=== PATIENT | male | born 1975 | race Caucasian/White ===

== ENCOUNTER → 2021-04-17 11:46 | Outpatient (CLI) | payer OTHER, SELFPAY ==
--- NOTE | 2021-04-17 12:04 | MR_ITS ---
PROCEDURE INFORMATION: Exam: MR Left Lower Extremity Joint Without and With Contrast; Ankle Exam date and time: 04/17/2021 12:04 PM Age: 45 years old Clinical indication: Left; Surgery date: 6+ months; Surgery type: Achilles repair; Patient HX: Lt ankle pain and swelling around achilles area. Prior surgery in 2007. 20ml prohance injected TECHNIQUE: Imaging protocol: MR of the Left lower extremity without and with contrast. Exam focused on the ankle. Contrast material: PROHANCE; Contrast volume: 20 ml; Contrast route: IV; COMPARISON: No relevant prior studies available. FINDINGS: Bones and cartilage: A benign bone island is incidentally noted. Well-corticated osteochondral bodies adjacent to the tip of the medial malleolus are consistent with remote unhealed fracture fragments. Joint spaces: No significant joint effusion. LIGAMENTS: Distal tibiofibular syndesmosis: Unremarkable. No tear. Anterior talofibular ligament: Unremarkable. No tear. Posterior talofibular ligament: Unremarkable. No tear. Calcaneofibular ligament: Unremarkable. No tear. Deltoid ligament complex: Unremarkable. No tear. TENDONS: Flexor tendons of foot: Unremarkable as visualized. Tibialis posterior tendon: Mild tenosynovitis involves the tibialis posterior tendon. Peroneal tendons: Unremarkable as visualized. Extensor tendons of foot: Unremarkable as visualized. Tibialis anterior tendon: Unremarkable. Achilles tendon: The repaired Achilles tendon is markedly thickened and has approximately 20% tearing involving the dorsal surface located approximately 5.7 cm proximal to the insertion (series 6/images 12-15). There is no prior postoperative study to assess for interval change. Tarsal canal (Sinus tarsi): Unremarkable. Normal signal of the fat. Tarsal tunnel: Unremarkable. Muscles: Unremarkable. Soft tissues: There is a prominent amount of edema in the subcutaneous fat. Plantar fascia: Unremarkable. IMPRESSION: 1. Repaired Achilles tendon with a 20% presumed retear located 5.6 cm proximal to the insertion. 2. Mild tenosynovitis of the tibialis posterior tendon. 3. Prominent subcutaneous edema.
[2021-04-17 12:39] LABS: Chloride 102 mmol/L (98-107); Potassium 4.3 mmoL/L (3.5-5.1); Sodium 139 mmol/L (136-145)
[2021-04-17 12:42] LABS: Alanine Aminotransferase 20 U/L (12-78); Albumin Level 4.6 g/dl (3.5-5.0); Albumin/Globulin Ratio 1.6 (1.1-1.8); Alkaline Phosphatase 60 U/L (38-126); Anion Gap 10.3 mEq/L (5-15); Aspartate Amino Transferase 26 U/L (17-59); Bilirubin,Total 0.6 mg/dl (0.2-1.3); Blood Urea Nitrogen 17 mg/dl (9-20); Carbon Dioxide 31 mmol/L (22.0-30.0); Estimated Glomerular Filt Rate 81 ml/min (>60); GFR (African American) 98 ML/MIN (>60); Globulin 2.9 g/dL (1.3-3.2); Total Protein,Serum 7.5 g/dl (6.3-8.2)
[2021-04-17 12:43] LABS: Calcium 9.5 mg/dl (8.4-10.2); Glucose 96 mg/dl (74-100)
[2021-04-17 12:48] LABS: C-Reactive Protein 1.4 mg/L (0-4)
[2021-04-17 13:21] LABS: Basophils # 0.1 K/mm3 (0-0.2); Basophils % 1.1 % (0.1-2.0); Eosinophils # 0.2 K/mm3 (0.0-0.4); Eosinophils % 4.7 % (0.1-12.0); Hematocrit 38.8 % (42.0-52.0); Hemoglobin 13.1 g/dL (14.1-18.0); Lymphocytes # 1.2 K/mm3 (0.7-4.5); Lymphocytes % 27.4 % (10-50); Mean Corpuscular HGB Conc 33.8 g/dL (31.8-35.4); Mean Corpuscular Hemoglobin 29.8 pg (27.0-31.2); Mean Corpuscular Volume 88.1 fl (80-94); Mean Platelet Volume 7.9 fl (7.4-10.4); Monocytes # 0.3 K/mm3 (0.1-1.0); Monocytes % 6.6 % (1.7-9.3); Neutrophils # 2.6 K/mm3 (1.8-7.8); Neutrophils % 60.2 % (37.0-80.0); Platelet Count 237 K/mm3 (142-424); Red Cell Distribution Width 12.7 % (11.5-17.5); White Blood Count 4.3 K/mm3 (4.8-10.8)
[2021-04-17 13:32] LABS: Erythrocyte Sedimentation Rate 23 mm/hr (0-15)
== END ==
PROVIDERS: Visit Provider Podiatrist
DX: M76.62 Achilles tendinitis, left leg (principal)
CPT/HCPCS: 73723; 80053; 85025; 85651; 86140; A9576

== ENCOUNTER → 2022-10-30 08:44 | Outpatient (CLI) | payer OTHER, SELFPAY ==
--- NOTE | 2022-10-30 08:48 | XR_ITS ---
FINAL REPORT CLINICAL HISTORY: lt hip pain FINDINGS: LEFT HIP Two views of the left hip with an AP pelvis demonstrate no acute fracture or dislocation. There is moderate left hip joint space narrowing. There are mild osteophytes at the acetabulum margin. There is partial lumbarization of the S1 segment. The visualized bony structures are well aligned. No soft tissue abnormality is seen. IMPRESSION: Moderate left hip joint space narrowing with mild osteophyte formation at the acetabular margin. No acute bony abnormality. Reviewed, Interpreted and Dictated by Sebastián Chapa MD Transcribed by Gabriela Barney Authenticated and [facility]
== END ==
PROVIDERS: PCP Family Medicine; Visit Provider Orthopaedic Surgery
DX: M25.552 Pain in left hip (principal)
CPT/HCPCS: 73502

== ENCOUNTER 2022-12-05 09:53 | Day surgery (SDC) | payer OTHER, SELFPAY ==
[2022-11-11 14:53] VITALS: BMI 25.4
[2022-12-05 10:24] VITALS: BP 135/73; PULSE 73; RESP 18; TEMP 36.5; O2SAT 99
--- NOTE | 2022-12-05 11:27 | EXP.ANES.CKL ---
[facility] Disclaimer: The information contained in this section may have been updated after the patient was seen, as this information can be updated by other users. Medical History Achilles rupture left Hemorrhoids Slight spotting only sometimes. Uses miralax to achieve Frio #4 and ease of movement. No issues currently. Rectal bleeding resolved/due to hemorrhoid. Tear of distal tendon of biceps right Surgical History History of wisdom tooth extraction, class IV edentulism Family History Mother Non-Hodgkin lymphoma Father Alzheimers disease Social History Smoking Status: Never smoker alcohol intake: current substance use type: denies use current occupational status: employed Travel in the last 8 weeks: None household members: family housing: house marital status: education level: master's degree current occupational exposures/hazards: Yes caffeine: Yes special roger needs: No agree to transfusion: No do you feel safe at home: Yes victim of physical abuse: No victim of emotional abuse: No victim of sexual abuse: No would you like helpful sources: No [facility] Anesthesia Checklist Patient Identification Patient Identification: Arm Band and Verbal (Name & ) Structural Data Admitted From: Home Planned Operative Procedure/s: Colonoscopy Consent for Planned Operative Procedure(s) Verified: Yes Verified Documents: Surgical Consent NPO Status Verified Time NPO: 05:00 Airway Assessment C-Spine Mobility Assessed: Yes TMJ Mobility Assessed: Yes Dentition: Good Dentition Neurological Assessment Level of Consciousness: Awake, Alert and Appropriate Anesthesia Plan Anesthesia Risk discussed: Yes ASA Class: I Anesthesia Type: MAC
[2022-12-05 11:31] VITALS: O2SAT 99
--- NOTE | 2022-12-05 11:50 | HMH.SCOPE ---
Procedure: Date: 12/05/22 Patient Date of :: 1975 Procedure Performed:: Screening colonoscopy Indications:: Screening for colorectal cancer Performing Provider:: Zahida Engel MD Referring Provider:: Rock Roth Sedation:: Propofol Procedure:: After placing the patient in the left lateral decubitus position, the colonoscopy was gently inserted into the rectum and under direct visualization advanced to the cecum which was identified by transillumination in the right lower quadrant, identification of the ileocecal valve, appendiceal orifice, and cecal strap. Color, texture, mucosa, and anatomy of the colon were carefully examined with the scope. Findings:: Anal canal: normal Rectum: normal Sigmoid colon: normal without polyps or inflammatory changes Descending colon: normal without polyps or inflammatory changes Splenic flexure: normal Transverse colon: normal without polyps or inflammatory changes Hepatic flexure: normal Ascending colon: normal without polyps or inflammatory changes Cecum: normal Terminal ileum: not visualized Impression: Normal colonoscopy Recommendations:: Follow up examination in about TEN years or so, sooner if clinically indicated. Complications:: None Estimated blood obtained (mL): 0
[2022-12-05 11:53] VITALS: BP 113/68; PULSE 71; RESP 16; TEMP 36.2; O2SAT 96
[2022-12-05 12:03] VITALS: BP 110/63; PULSE 63; RESP 16; O2SAT 97
[2022-12-05 12:13] VITALS: BP 117/66; PULSE 60; RESP 16; O2SAT 97
[2022-12-05 12:23] VITALS: BP 128/77; PULSE 60; RESP 16; TEMP 36.6; O2SAT 99
== END 2022-12-05 12:25 | disposition home or self-care (01) ==
PROVIDERS: PCP Family Medicine; Visit Provider Internal Medicine Gastroenterology
PROC: 0DJD8ZZ Inspection of Lower Intestinal Tract, Via Natural or Artificial Opening Endoscopic (ICD-10-PCS; CPT 45378; principal; 2022-12-05 11:00)
DX: Z12.11 Encounter for screening for malignant neoplasm of colon (principal)
CPT/HCPCS: 45378

== ENCOUNTER → 2023-01-08 08:38 | Outpatient (CLI) | payer OTHER, SELFPAY ==
[2023-01-08 09:21] LABS: Basophils # 0.1 K/mm3 (0-0.2); Basophils % 1.6 % (0.1-2.0); Eosinophils # 0.3 K/mm3 (0.0-0.4); Eosinophils % 5.7 % (0.1-12.0); Hematocrit 41.7 % (42.0-52.0); Hemoglobin 14.2 g/dL (14.1-18.0); Lymphocytes # 1.3 K/mm3 (0.7-4.5); Lymphocytes % 29.6 % (10-50); Mean Corpuscular HGB Conc 33.9 g/dL (31.8-35.4); Mean Corpuscular Hemoglobin 30.2 pg (27.0-31.2); Mean Platelet Volume 8.1 fl (7.4-10.4); Monocytes # 0.3 K/mm3 (0.1-1.0); Monocytes % 7.4 % (1.7-9.3); Neutrophils # 2.4 K/mm3 (1.8-7.8); Neutrophils % 55.6 % (37.0-80.0); Platelet Count 223 K/mm3 (142-424); Red Blood Count 4.69 M/mm3 (4.60-6.20); Red Cell Distribution Width 13.5 % (11.5-17.5); White Blood Count 4.3 K/mm3 (4.8-10.8)
[2023-01-08 10:10] LABS: Alanine Aminotransferase 27 U/L (12-78); Albumin Level 4.7 g/dl (3.5-5.0); Albumin/Globulin Ratio 1.7 (1.1-1.8); Alkaline Phosphatase 52 U/L (38-126); Anion Gap 10.5 mEq/L (5-15); Aspartate Amino Transferase 28 U/L (17-59); Bilirubin,Total 0.7 mg/dl (0.2-1.3); Blood Urea Nitrogen 21 mg/dl (9-20); Calcium 9.4 mg/dl (8.4-10.2); Carbon Dioxide 30 mmol/L (22.0-30.0); Chloride 102 mmol/L (98-107); Chol/HDL Ratio 5.3 (1-3.5); Cholesterol 250 mg/dl (140-200); Estimated Glomerular Filt Rate 80 ml/min (>60); GFR (African American) 97 ML/MIN (>60); Globulin 2.7 g/dL (1.3-3.2); Glucose 108 mg/dl (74-100); HDL Cholesterol 47 mg/dl (40-60); Potassium 4.5 mmoL/L (3.5-5.1); Sodium 138 mmol/L (136-145); Total Protein,Serum 7.4 g/dl (6.3-8.2); Triglycerides 224 mg/dl (30-150); VLDL Cholesterol 45 mg/dL (0-40)
[2023-01-08 10:21] LABS: Direct LDL Cholesterol 140.83 mg/dL (100-129)
== END ==
PROVIDERS: PCP Family Medicine; Visit Provider Family Medicine
DX: Z00.00 Encounter for general adult medical examination without abnormal findings (principal)
CPT/HCPCS: 36415; 80053; 80061; 85025

== ENCOUNTER → 2023-03-17 14:25 | Outpatient (CLI) | payer OTHER, SELFPAY ==
--- NOTE | 2023-03-17 14:25 | MR_ITS ---
FINAL REPORT CLINICAL HISTORY: Lt Hip pain. ABNORMAL X-RAY. NO INJURY OR TRAUMA FINDINGS: Multiplanar MR imaging of the left hip was performed without contrast. There are mild degenerative changes of the right hip. Severe degenerative changes are seen of the left hip. There are subchondral cysts in the superior left femoral head and a presumed subchondral cyst in the anterior femoral head measuring 16 mm. There is bone marrow edema in the left femoral head and neck. There is no evidence of fracture or dislocation. There is no evidence of avascular necrosis. No bony mass is identified. There is a tear of the anterior superior labrum with a lobular, parameniscal cyst in the region measuring 12 mm. Small bilateral joint effusions are seen. The tendons are intact. The musculature is intact. IMPRESSION: Severe degenerative changes of the left hip with subchondral cysts in the femoral head and associated bone marrow edema of the left femoral head and neck. Tear of the anterior superior labrum with parameniscal cyst. Reviewed, Interpreted and Dictated by Mansoor Thompson III, MD Transcribed by Deena Mercer Authenticated and [facility]
== END ==
PROVIDERS: PCP Family Medicine; Visit Provider Orthopaedic Surgery
DX: M25.552 Pain in left hip (principal); M25.852 Other specified joint disorders, left hip
CPT/HCPCS: 73721

== ENCOUNTER 2023-05-12 09:09 | Day surgery (SDC) | payer OTHER, SELFPAY ==
[2023-05-06 15:45] VITALS: BMI 25.9
[2023-05-12 09:28] VITALS: BP 139/81; PULSE 70; RESP 18; TEMP 36.4; O2SAT 99
--- NOTE | 2023-05-12 09:37 | P.PNANES_ITS ---
[facility] Disclaimer: The information contained in this section may have been updated after the patient was seen, as this information can be updated by other users. Medical History Achilles rupture Hemorrhoids Rectal bleeding Tear of distal tendon of biceps Surgical History History of wisdom tooth extraction, class IV edentulism Family History Mother Non-Hodgkin lymphoma Father Alzheimers disease Social History Smoking Status: Never smoker alcohol intake: current substance use type: denies use current occupational status: employed Travel in the last 8 weeks: Inside the [place] household members: family housing: house marital status: education level: master's degree current occupational exposures/hazards: Yes caffeine: Yes special roger needs: No agree to transfusion: No do you feel safe at home: Yes victim of physical abuse: No victim of emotional abuse: No victim of sexual abuse: No would you like helpful sources: No [facility] Anesthesia Checklist Patient Identification Patient Identification: Arm Band and Verbal (Name & ) Structural Data Admitted From: Home Planned Operative Procedure/s: Hip injection Consent for Planned Operative Procedure(s) Verified: Yes NPO Status Verified Time NPO: 00:00 Additional verifications Anesthesia Reactions: No (nausea) Hx Blood Transfusions: No Blood Transfusion Reaction: No Airway Assessment Mallampati Score:: Class I C-Spine Mobility Assessed: Yes TMJ Mobility Assessed: Yes Dentition: Good Dentition Neurological Assessment Level of Consciousness: Awake Hx Seizures: No Numbness or tingling in extremities: No Anesthesia Plan Anesthesia Risk discussed: Yes Anesthesia Plan: Verified ASA Class: I Anesthesia Type: MAC
[2023-05-12 10:20] VITALS: BP 106/65; PULSE 77; RESP 17; TEMP 36.1; O2SAT 97
--- NOTE | 2023-05-12 10:20 | P.OP_ITS ---
Date of procedure: 05/12/23 Pre-op Diagnosis:: Left hip osteoarthritis Post-op Diagnosis:: Same Procedure performed:: Left hip injection with arthrogram and x-ray guidance for needle place Surgeon:: Kendall Cuevas DO PLUMBER PIPE FITTING:: Kalpesh Cantu Anesthesia: MAC Estimated blood loss (mL): 0 Operative findings:: Severe degenerative changes left hip Operative note:: Patient was identified preoperatively. Left hip marked with yes and my initials. Transported operative suite. Placed upon the radiolucent bed. Given sedation. Left hip was prepped and draped in normal sterile fashion. Once prepped and draped final operative timeout performed to identify proper patient procedure and extremity. Everyone involved in the case agreed. There were no counter indications to beginning. 18-gauge spinal needle was directed into the hip capsule under direct visualization with the x-ray C arm. Once within the capsule Isovue was injected for arthrogram to confirm needle placement. Once confirmed to be within the capsule injection of 80 mg of Kenalog and 3 cc of 1% lidocaine injected to the hip. Needle removed Band-Aid placed patient tolerated procedure well taken to stepdown Condition: stable Disposition: PACU Complications:: None apparent
--- NOTE | 2023-05-12 10:24 | XR_ITS ---
FINAL REPORT CLINICAL HISTORY: LEFT HIP INJECTION IN THE OR fluoro time: .1 FINDINGS: FLUOROSCOPY LESS THAN 1 HOUR HISTORY: Fluoroscopy guided injection. FINDINGS: Fluoroscopic guidance was provided for left hip injection. A single spot film was obtained. 0.1 minutes of fluoroscopy time were used. IMPRESSION: As above. Reviewed, Interpreted and Dictated by Sebastián Chapa MD Transcribed by Maida Cornejo Authenticated and [facility]
[2023-05-12 10:30] VITALS: BP 133/76; PULSE 67; RESP 17; O2SAT 98
[2023-05-12 10:40] VITALS: BP 140/85; PULSE 65; RESP 16; O2SAT 100
[2023-05-12 10:50] VITALS: BP 135/86; PULSE 68; RESP 17; O2SAT 100
== END 2023-05-12 10:55 | disposition home or self-care (01) ==
PROVIDERS: PCP Family Medicine; Visit Provider Orthopaedic Surgery
PROC: (CPT 20610; principal; 2023-05-12 10:00)
DX: M16.12 Unilateral primary osteoarthritis, left hip (principal)
CPT/HCPCS: 20610; 73502; 76000; Q9966

== ENCOUNTER 2025-04-07 09:45 | Outpatient (CLI) | payer OTHER, SELFPAY ==
[2025-04-07 13:16] LABS: Hematocrit 41.4 % (42.0-52.0); Hemoglobin 14.5 g/dL (14.1-18.0); Immature Granulocytes % 0.2 %; Mean Corpuscular HGB Conc 35.0 g/dL (31.8-35.4); Mean Corpuscular Hemoglobin 30.7 pg (27.0-31.2); Mean Corpuscular Volume 87.5 fl (80-94); Nucleated Red Blood Cells % 0 %; Platelet Count 221 K/mm3 (142-424); Red Blood Count 4.73 M/mm3 (4.60-6.20); Red Cell Distribution Width-SD 39.6 fL; White Blood Count 4.1 K/mm3 (4.8-10.8)
[2025-04-07 13:43] LABS: Albumin Level 4.9 g/dl (3.5-5.0); Chloride 100 mmol/L (98-107); Potassium 4.6 mmoL/L (3.5-5.1); Sodium 139 mmol/L (136-145)
[2025-04-07 13:45] LABS: Alanine Aminotransferase 32 U/L (12-78); Albumin/Globulin Ratio 1.7 (1.1-1.8); Alkaline Phosphatase 53 U/L (38-126); Anion Gap 13.6 mEq/L (5-15); Aspartate Amino Transferase 31 U/L (17-59); Bilirubin,Total 0.9 mg/dl (0.2-1.3); Blood Urea Nitrogen 21 mg/dl (9-20); Carbon Dioxide 30 mmol/L (22.0-30.0); Creatinine,Serum 0.90 mg/dl (0.66-1.25); Estimated Glomerular Filt Rate 90 ml/min (>60); GFR (African American) 109 ML/MIN (>60); Globulin 2.9 g/dL (1.3-3.2); Total Protein,Serum 7.8 g/dl (6.3-8.2)
[2025-04-07 13:46] LABS: Calcium 9.9 mg/dl (8.4-10.2); Cholesterol 243 mg/dl (140-200); Glucose 99 mg/dl (74-100); HDL Cholesterol 39 mg/dl (40-60); Triglycerides 182 mg/dl (30-150)
[2025-04-07 14:07] LABS: Hemoglobin A1C 6.3 % (4.0-6.0)
--- OUTSIDE RECORDS SUMMARY | 2025-04-11 09:23 | XMS_ITS | Clinical Summary ---
Author Organization [facility] Address [address] [place] [address] Care Team Providers Care Waste Reclaimer Name Role Phone Rock Roth MD Primary Care Provider + [phone] Allergies No known active allergies Medications oxyCODONE (Roxicodone) 5 MG immediate release tablet Take 1 tablet (5 mg) by mouth every 6 (six) hours if needed for severe pain for up to 30 doses. 30 tablet 3 Active Additional Information Patient not taking.Reported on 08/29/2023 gabapentin (Neurontin) 100 MG capsule Take 1 capsule (100 mg) by mouth 3 (three) times a day. If this medication makes you drowsy you may take it only at bedtime 30 capsule 3 Active Additional Information Patient not taking.Reported on 08/29/2023 acetaminophen (Tylenol Extra Strength) 500 MG tablet Take 2 tablets (1,000 mg) by mouth every 8 (eight) hours. 100 tablet 3 Active traMADol (Ultram) 50 MG tablet Take 1 tablet (50 mg) by mouth every 4 (four) hours if needed for moderate pain. Take 1 or 2 tablets every 4-6 hours as needed for pain 60 tablet 3 Active Additional Information Patient not taking.Reported on 08/29/2023 Active Problems Problem Noted Date Diagnosed Date Arthritis of left hip 05/27/2023 Immunizations Immunization Administration Dates Next Due Hep B, adult 01/12/2001,08/12/2000,07/04/2000 IPV 02/26/1983 MMR 09/29/2003 Mumps 05/08/1978 PPD Skin Test (TB Skin Test) 08/21/2009, 08/30/2008,09/09/2007,09/29/2006,,10/01/2004,09/27/2003 Td (adult), unspecified 11/25/1994 Social History Tobacco Use Types Packs/Day Years Used Date Smoking Tobacco: Never Smokeless Tobacco: Never Tobacco Cessation:Counseling Given: Not Answered Alcohol Use Standard Drinks/Week Comments Yes 0 (1 standard drink = 0.6 oz pur e alcohol) couple days a week Sex and Gender Information Value Date Recorded Sex Assigned at Not on file Legal Sex Male 8:50 PM EDT Gender Identity Not on file Sexual Orientation Not on file Last Filed Vital Signs Vital Sign Reading Time Taken Comments Blood Pressure 137/84 09/25/2023 9:56 AM EST Pulse 78 09/25/2023 9:56 AM EST Temperature 35.9 C (96.7 F) 08/18/2023 5:10 PM EST Respiratory Rate 17 08/18/2023 5:40 PM EST Oxygen Saturation 98% 09/25/2023 9:56 AM EST Inhaled Oxygen Concentration - - Weight 102 kg (224 lb 13.9 oz) 09/25/2023 9:56 A M EST Height 200.7 cm (6' 7 ) 09/25/2023 9:56 AM EST Body Mass Index 25.33 09/25/2023 9:56 AM EST Plan of Treatment Health Maintenance Due Date Last Done Comments [facility]-Depression Screening 1975 [facility]-HIV Screening 1975 [facility]-Hepatitis C Screening 1975 [facility]-/Child/Adol SDOH Screenings 1975 [facility]-IPV Vaccines (2 of 3 - 4-dose series) 03/26/1983 02/26/1983 [facility]- SDOH Screenings 1994 [facility]-Adult SDOH Screenings 1994 [facility]-DTaP,Tdap,and Td Vaccine s (2 - Tdap) 11/26/1994 11/25/1994 CT Colonography 2021 Colonoscopy 2021 FIT-DNA 2021 FIT 2021 FOBT 2021 Sigmoidoscopy 2021 [facility]-Colorectal Cancer Screening 2021 [id number] Vaccine ( season) 2024 10/09/2021, 10/20/2020, 09/20/2020 [facility]-Influenza Vaccine (#1) 2025 [facility]-Zoster Vaccines (1 of 2) 2026 [facility]-Hepatitis B Vaccines Completed 001, 08/12/2000, 07/04/2000 [facility]-Obesity Intervention Completed 024, 08/29/2023 HPV Vaccines Aged Out No longer eligi ble based on patient's age to complete this topic [facility]-HIB Vaccines Aged Out No longer e ligible based on patient's age to complete this topic [facility]-Hepatitis A Vaccines Aged Out No longer eligible based on patient's age to complete this topic [facility]-Pneumococcal Vaccine: Pediatrics (0 to 5 Years) and At-Risk Patients (6 to 49 Years) Aged Out No longer eligible b ased on patient's age to complete this topic [facility]-Rotavirus Vaccines Aged Out No lo nger eligible based on patient's age to complete this topic Medical Devices Implanted Type Area Manager Commercial Sales Device Identifier Shelf Expiration Date Model / Serial / Lot Chg Shell R3 3 Hole Acet 60mm - [id number] Implanted:Qty: 1 on 08/18/[address] Go MD at [facility] Hip Left: Hip [id number] 03/21/2033 [id number] / / [id number] Chg Head Oxinium Fem 09/04 28m - [id number] Implanted:Qty: 1 on 08/18/[address] MD at [facility] Hip Left: Hip [employer]-[id number] 04/19/2033 [id number] / / [id number] Liner Or3o Dual Mbility 46 60 - [id number] Implanted:Qty: 1 on 08/18/[address] MD at [facility] Liner Left: Hip [employer]-[id number] 04/21/2031 [id number] / / [id number] Liner Or3o Dual Mbility Xlpe 28 46 - [id number] Implanted:Qty: 1 on 08/18/[address] MD at [facility] Liner Left: Hip [employer]-[id number] 04/10/2032 [id number] / / [id number] Chg Screw Ref Spher Head 25mm - [id number] Implanted:Qty: 1 on 08/18/[address] MD at [facility] Screw Left: Hip [employer]-[id number] 04/22/2033 [id number] / / [id number] Chg Screw Ref Spher Head 35mm - [id number] Implanted:Qty: 1 on 08/18/[address] MD at [facility] Screw Left: Hip [employer]-[id number] 02/21/2033 [id number] / / [id number] Polarstem Cementless Tiha 7 - [id number] Implanted:Qty: 1 on 08/18/[address] MD at [facility] Stem Left: Hip [employer]-[id number] 11/21/2029 [id number] / / [id number] Unknown Arm Insurance [facility] Advance Directives * Full Code (Latest Code Status on File) Date Activated Date Inactivated Comments 08/18/2023 2:41 PM 08/18/2023 8:40 PM Question Answer Comments Patient has decision-making capacity? Yes Care Teams Waste Reclaimer Relationship Specialty Start Date End Date [place], Rock T, MD [address] [place] [address] PCP - General 05/05/23
== END 2025-04-07 23:59 | disposition home or self-care (01) ==
LOC: LAB.DROPOF 04-11 09:21
PROVIDERS: PCP Internal Medicine; Visit Provider Internal Medicine
DX: Z13.220 Encounter for screening for lipoid disorders (principal); Z00.00 Encounter for general adult medical examination without abnormal findings; R73.9 Hyperglycemia, unspecified; D64.9 Anemia, unspecified
CPT/HCPCS: 80053; 80061; 83036; 85025